=== PATIENT | female | born 1975 | race Asian ===

== ENCOUNTER 2016-06-11 12:16 | Emergency (ER) | payer OTHER ==
[~2016-06-11] VITALS: Wt 96.0 kg
[~2016-06-11 12:16] MED LIST: CALCIUM DAILY; [UNRECOGNIZED DRUG - OTHER]
[2016-06-11] MEDS ORDERED: DEXAMETHASONE 10 MG/ML 1 ML INJ IM STA (12:59)
[2016-06-11] MEDS ORDERED: IPRATROPIUM (NEB) 0.5 MG/2.5 ML AMP INH STA (12:59)
[2016-06-11] MEDS ORDERED: LEVALBUTEROL (NEB) 1.25 MG/0.5 ML AMP INH STA ×2 (12:59→14:27)
--- NOTE | 2016-06-11 13:22 | QN ---
Documentation Comment My independent concise history is wheezing and shortness of breath. My pertinent physical exam findings are wheezing diffusely in all lung gonzalez. The plan is Decadron IM, albuterol nebulizer treatment, chest x-ray, and likely discharged to follow-up with primary doctor. JOHN NOLEN MD Jun 11, 2016 13:22
--- NOTE | 2016-06-11 13:25 | ERD ---
ER Documentation Chief Complaint Date/Time DATE: 06/11/16 TIME: 13:22 Chief Complaint sob x4-5 days. audible wheezing in triage HPI This is a 40-year-old female who presents the emergency department today complaining of shortness of breath for the past 4-5 days. Patient states that Wednesday she started coughing and heard some wheezing. States she went to her medical doctor on Wednesday but was not given any medication. Patient denies any recent travel, oral contraceptive use, calf pain. ROS All systems reviewed and are negative except as per history of present illness. Medications Home Meds Active Scripts Benzonatate* (Tessalon Perle*) 100 Mg Capsule, 100 MG PO Q8H Y for COUGH for 5 Days, CAP Prov:SARAH KRISHNAMURTHY PA-C 06/11/16 Prednisone* (Prednisone*) 20 Mg Tab, 40 MG PO DAILY for 4 Days, TAB Prov:SARAH KRISHNAMURTHY PA-C 06/11/16 Albuterol Sulfate* (Proair HFA*) 8.5 Gm Hfa.aer.ad, 2 PUFF INH Q4H Y for WHEEZING AND SOB, #1 INHALER Prov:SARAH KRISHNAMURTHY PA-C 06/11/16 Reported Medications [Calcium Daily] No Conflict Check 08/20/15 [Vitamin Daily] No Conflict Check 08/20/15 Allergies Allergies: Coded Allergies: No Known Allergy (Unverified , 08/20/15) PMhx/Soc History of Surgery: Yes (BTL) Anesthesia Reaction: No Hx Neurological Disorder: No Hx Respiratory Disorders: No Hx Cardiac Disorders: No Hx Psychiatric Problems: No Hx Miscellaneous Medical Probl: Yes (ABNORMAL VAGINAL BLEEDING ) Hx Alcohol Use: No Hx Substance Use: No Hx Tobacco Use: No Smoking Status: Never smoker Physical Exam Vitals Vital Signs Date Time Temp Pulse Resp B/P Pulse Ox O2 Delivery O2 Flow Rate FiO2 06/11/16 15:19 104 20 100 06/11/16 14:42 119 20 98 21 06/11/16 13:08 91 26 98 21 06/11/16 12:18 98.2 111 32 156/87 98 Physical Exam Const: Mild distress Head: Atraumatic Eyes: Normal Conjunctiva ENT: Ears TMs normal. Nose no drainage. Throat no erythema no exudate Neck: Full range of motion..~ No meningismus. Resp: Diffuse wheezing bilaterally in all lung gonzalez. Cardio: Regular rate and rhythm, no murmurs Abd: Soft, non tender, non distended. Normal bowel sounds Skin: No petechiae or rashes Back: No midline or flank tenderness Ext: No cyanosis, or edema. No calf pain bilaterally. Neur: Awake and alert Psych: Normal Mood and Affect Results 24 hrs Current Medications Medications (Trade) Dose Ordered Sig/William Route PRN Reason Start Time Stop Time Status Last Admin Dose Admin Levalbuterol (Xopenex Neb) 5 mg ONCE STAT INH 06/11/16 12:59 06/11/16 13:01 DC 06/11/16 13:07 Ipratropium [place] (Atrovent 0.02% (Neb)) 1 mg ONCE STAT INH 06/11/16 12:59 06/11/16 13:01 DC 06/11/16 13:07 Dexamethasone (Decadron) 10 mg ONCE STAT IM 06/11/16 12:59 06/11/16 13:01 DC 06/11/16 13:14 Levalbuterol (Xopenex Neb) 2.5 mg ONCE STAT INH 06/11/16 14:27 06/11/16 14:29 DC 06/11/16 14:38 DIAGNOSTIC IMAGING REPORT Patient: JUAN PRICE : 1975 Age: 40 Sex: F MR #: [id number] DOS: 06/11/16 1259 Ordering MD: SARAH KRISHNAMURTHY PA-C Location: [facility] Room/Bed: PROCEDURE: Chest x-ray CLINICAL INDICATION: Wheezing TECHNIQUE: Chest single view COMPARISON: None FINDINGS: The heart is normal in size. The pulmonary vessels are normal in caliber. The lungs are clear. The costophrenic angles are sharp. The visualized bony thorax is unremarkable. IMPRESSION: No acute cardiopulmonary disease. RPTAT: HH .Christopher Langford MD, Date Time Electronically viewed and signed by .Christopher Langford MD, on 06/11/2016 14:07 .W/ CC: SARAH KRISHNAMURTHY PA-C Procedures/MDM This is a 40-year-old female who presents to the [facility] department today complaining of shortness of breath and wheezing for the past 4-5 days. Patient had audible wheezing on physical exam. She is tachycardic at 111 and respirations are 32. Her oxygen saturation is 98%. I did give the patient a 1 hour continuous breathing treatment as well as Decadron here in the emergency department. Patient had persistent wheezing and therefore was given another 1 hour continuous breathing treatment and wheezing did improve. I also obtain a chest x-ray. Chest x-ray is negative. Low suspicion for PE, abscess, pneumothorax, pleural effusion Dr. Alvarado has seen and evaluated the patient does not feel the patient requires further laboratory workup or imaging at this time. Patient symptoms at this time most consistent with reactive airway disease. She will be given a prescription for albuterol inhaler, short course of prednisone and Tessalon Perles for cough . At this time the patient is stable for discharge and outpatient management. Patient should follow up with their PCP in the next 1-2 days. They may return to the emergency department sooner for any persistent or worsening of symptoms. Patient understood and agreed with the plan. Departure Diagnosis: Primary Impression: Shortness of breath Condition: Fair SARAH KRISHNAMURTHY PA-C Jun 11, 2016 13:25
--- NOTE | 2016-06-11 14:07 | RADRPT ---
PROCEDURE: Chest x-ray CLINICAL INDICATION: Wheezing TECHNIQUE: Chest single view COMPARISON: None FINDINGS: The heart is normal in size. The pulmonary vessels are normal in caliber. The lungs are clear. Th e costophrenic angles are sharp. The visualized bony thorax is unremarkable. IMPRESSION: No acute cardiopulmonary disease. RPTAT: HH .Christopher Langford MD, MD Date Time Electronically viewed and signed by .Christopher Langford MD, MD on 06/11/2016 14:07 .W/
[2016-06-11] MEDS ORDERED: ALBU8.5H3 INH (16:03)
[2016-06-11] MEDS ORDERED: PRED20TA PO (16:03)
[2016-06-11] MEDS ORDERED: BENZ100C70 PO (16:03)
[2016-06-11 16:14] VITALS: BP 130/78; PULSE 102; RESP 20
== END 2016-06-11 16:15 | disposition home or self-care (01) ==
LOC: FTE 12:16
DX: R06.02 Shortness of breath (principal)
CPT/HCPCS: 71010; 94644; 94645; 96372; J1100; Z7502; Z7610

== ENCOUNTER 2016-12-29 07:29 | Emergency (ER) | payer OTHER ==
[~2016-12-29] VITALS: Ht 157.5 cm; Wt 100.0 kg
[~2016-12-29 07:29] MED LIST changes: +ALBU8.5H3 INH; +BENZ100C70 PO; +PRED20TA PO
[2016-12-29 07:33] VITALS: Ht 157.5 cm; Wt 100.0 kg
[2016-12-29 08:09] VITALS: BP 117/66; PULSE 71; RESP 22
--- NOTE | 2016-12-29 08:40 | RADRPT ---
PROCEDURE: Chest Radiograph. CLINICAL INDICATION: Chest pain TECHNIQUE: Single frontal chest radiograph. COMPARISON: Chest radiograph 06/11/2016 FINDINGS: The cardiomediastinal silhouette is within normal limits. No infiltrate or effusion is seen. Th e bones are intact. IMPRESSION: 1. Unremarkable chest radiograph. RPTAT: KK .Eulogio Flores MD, MD Date Time Electronically viewed and signed by .Eulogio Flores MD, on 12/29/2016 08:39 .B/
[2016-12-29] MEDS ORDERED: KETOROLAC 30 MG INJ IV STA (08:50)
[2016-12-29 09:25] LABS: BASOPHILS % 0.5 % (0.0-2.0); EOSINOPHILS # 0.2 10^3/ul (0.0-0.5); EOSINOPHILS % 2.1 % (0.0-7.0); HEMATOCRIT 44.2 % (37.0-47.0); HEMOGLOBIN 14.1 g/dl (12.0-16.0); LYMPHOCYTES # 1.9 10^3/ul (0.8-2.9); LYMPHOCYTES % 21.3 % (15.0-51.0); MEAN CORPUSCULAR HEMOGLOBIN 26.2 pg (29.0-33.0); MEAN CORPUSCULAR HGB CONC 31.9 g/dl (32.0-37.0); MEAN CORPUSCULAR VOLUME 82.2 fl (82.0-101.0); MEAN PLATELET VOLUME 10.6 fl (7.4-10.4); MONOCYTE # 0.4 10^3/ul (0.3-0.9); MONOCYTES % 4.8 % (0.0-11.0); PLATELET COUNT 338 10^3/UL (140-415); RED BLOOD COUNT 5.38 10^6/ul (4.20-5.40); RED CELL DISTRIBUTION WIDTH 14.1 % (11.5-14.5); WHITE BLOOD COUNT 8.7 10^3/ul (4.8-10.8)
[2016-12-29 09:42] LABS: ANION GAP 14 (8-16); BLOOD UREA NITROGEN 14 mg/dl (7-20); CALCIUM 9.1 mg/dl (8.4-10.2); CARBON DIOXIDE 26 mmol/L (21-31); CHLORIDE 103 mmol/L (97-110); CREATININE 0.51 mg/dl (0.44-1.00); GLUCOSE 130 mg/dl (70-220); POTASSIUM 4.5 mmol/L (3.5-5.1); SODIUM 138 mmol/L (135-144)
[2016-12-29 09:47] LABS: D-DIMER 281.74 ng/ml (<460)
[2016-12-29 10:01] LABS: TROPONIN-I < 0.012 ng/ml (0.00-0.12)
[2016-12-29] MEDS ORDERED: IBUP-1542 PO (10:16)
--- NOTE | 2016-12-29 10:17 | ERD ---
ER Documentation Chief Complaint Date/Time DATE: 12/29/16 TIME: 10:17 Chief Complaint cwp 3-4 days HPI Patient is a 41-year-old female with no medical problems who presents with chest pain. The symptoms started 4-5 days ago and has been worsening. She says it is worse with deep breaths and with movement. The pain is been constant. She said that she tried "heartburn medication" but she does not know what it was. Her primary doctor is Dr. Tobin she has an appointment scheduled for . ROS All systems reviewed and are negative except as per history of present illness. Medications Home Meds Active Scripts Ibuprofen* (Motrin*) 600 Mg Tab, 600 MG PO Q6H Y for PAIN AND OR ELEVATED TEMP, #30 TAB Prov:JOHN NOLEN MD 12/29/16 Discontinued Reported Medications [Calcium Daily] No Conflict Check 08/20/15 [Vitamin Daily] No Conflict Check 08/20/15 Discontinued Scripts Benzonatate* (Tessalon Perle*) 100 Mg Capsule, 100 MG PO Q8H Y for COUGH for 5 Days, CAP Prov:SARAH KRISHNAMURTHY PA-C 06/11/16 Prednisone* (Prednisone*) 20 Mg Tab, 40 MG PO DAILY for 4 Days, TAB Prov:SARAH KRISHNAMURTHY PA-C 06/11/16 Albuterol Sulfate* (Proair HFA*) 8.5 Gm Hfa.aer.ad, 2 PUFF INH Q4H Y for WHEEZING AND SOB, #1 INHALER Prov:SARAH KRISHNAMURTHY PA-C 06/11/16 Allergies Allergies: Coded Allergies: No Known Allergy (Unverified , 08/20/15) PMhx/Soc History of Surgery: Yes (BTL) Anesthesia Reaction: No Hx Neurological Disorder: No Hx Respiratory Disorders: No Hx Cardiac Disorders: No Hx Psychiatric Problems: No Hx Miscellaneous Medical Probl: Yes (ABNORMAL VAGINAL BLEEDING ) Hx Alcohol Use: No Hx Substance Use: No Hx Tobacco Use: No Smoking Status: Never smoker FmHx Family History: coronary disease Physical Exam Vitals Vital Signs Date Time Temp Pulse Resp B/P Pulse Ox O2 Delivery O2 Flow Rate FiO2 12/29/16 08:09 71 22 117/66 100 12/29/16 07:33 98.1 87 18 136/79 99 Physical Exam Const: Moderate distress secondary to pain Head: Atraumatic Eyes: Normal Conjunctiva ENT: Normal External Ears, Nose and Mouth. Neck: Full range of motion..~ No meningismus. Resp: Clear to auscultation bilaterally Cardio: Regular rate and rhythm, no murmurs, Chest wall pain with tenderness to palpation which reproduces pain Abd: Soft, non tender, non distended. Normal bowel sounds Skin: No petechiae or rashes Back: No midline or flank tenderness Ext: No cyanosis, or edema Neur: Awake and alert Psych: Normal Mood and Affect Result Diagram: 12/29/1682912/29/16829 Results 24 hrs Laboratory Tests Test 12/29/16 08:30 White Blood Count 8.710^3/ul Red Blood Count 5.3810^6/ul Hemoglobin 14.1g/dl Hematocrit 44.2% Mean Corpuscular Volume 82.2fl Mean Corpuscular Hemoglobin 26.2pg Mean Corpuscular Hemoglobin Concent 31.9g/dl Red Cell Distribution Width 14.1% Platelet Count 51317^3/UL Mean Platelet Volume 10.6fl Neutrophils % 71.0% Lymphocytes % 21.3% Monocytes % 4.8% Eosinophils % 2.1% Basophils % 0.5% Nucleated Red Blood Cells % 0.0/100WBC Neutrophils # (Manual) 6.210^3/ul Lymphocytes # 1.910^3/ul Monocytes # 0.410^3/ul Eosinophils # 0.210^3/ul Basophils # 0.010^3/ul Nucleated Red Blood Cells # 0.010^3/ul D-Dimer 281.74ng/ml D-Dimer Comment Sodium Level 138mmol/L Potassium Level 4.5mmol/L Chloride Level 103mmol/L Carbon Dioxide Level 26mmol/L Anion Gap 14 Blood Urea Nitrogen 14mg/dl Creatinine 0.51mg/dl Glucose Level 130mg/dl Calcium Level 9.1mg/dl Troponin I < 0.012ng/ml Current Medications Medications (Trade) Dose Ordered Sig/William Route PRN Reason Start Time Stop Time Status Last Admin Dose Admin Ketorolac Tromethamine (Toradol) 30 mg ONCE STAT IV 12/29/16 08:50 12/29/16 08:53 DC 12/29/16 08:59 Procedures/MDM EKG read by me: Rate/Rhythm: Regular rate and rhythm at a rate of 91 Intervals: Normal Impression: No evidence of ischemia or arrhythmia Chest x-ray negative per radiology. Patient is a 41-year-old female with no medical problems who presents with chest pain. She had a workup including laboratory studies, EKG, and chest x- ray. Her troponin is negative. EKG was normal. Chest x-ray shows no pneumonia or pneumothorax. D-dimer is negative and I doubt pulmonary embolism. At this point I doubt acute coronary syndrome, pneumonia, pneumothorax, pulmonary embolism, or aortic dissection. I believe outpatient management is appropriate and I believe patient likely has chest wall pain. The patient will need to follow-up with her primary doctor within 48 hours for reevaluation. The patient can take ibuprofen as needed for pain or inflammation. She was provided with copies of her laboratory studies and chest x-ray prior to discharge. Departure Diagnosis: Primary Impression: Chest pain Chest pain type: unspecified Qualified Code: R07.9 - Chest pain, unspecified type Condition: Fair Patient Instructions: Chest Pain, Uncertain Cause Referrals: LILI TOBIN Additional Instructions: Keep appointment scheduled within 48 hours. Return for any worsening symptoms. JOHN NOLEN MD Dec 29, 2016 10:17
== END 2016-12-29 12:39 | disposition home or self-care (01) ==
LOC: E/R 07:29
DX: R07.89 Other chest pain (principal)
CPT/HCPCS: 36415; 71010; 80048; 84484; 85025; 85378; 93005; 96374; J1885; Z7502